=== PATIENT | female | born 2000 | race Two or more races ===

== ENCOUNTER 2020-11-11 00:40 | Emergency (ER) | payer SELFPAY ==
[~2020-11-11] VITALS: Ht 170.2 cm; Wt 91.6 kg
[2020-11-11 00:49] VITALS: BP 119/75
[2020-11-11 01:26] LABS: MICROSCOPIC AUTO
[2020-11-11 01:26] LABS: BASOPHILS % (AUTO) 1 % (0-1); EOSINOPHILS % (AUTO) 1 % (1-7); LYMPHOCYTES % (AUTO) 40 % (22-44); MEAN CORPUSCULAR HEMOGLOBIN 29.1 pg (27.0-34.8); MEAN CORPUSCULAR HGB CONC 33.8 g/dL (32.4-35.8); MEAN PLATELET VOLUME 8.7 fL (7.4-10.4); MONOCYTES % (AUTO) 7 % (2-9); NEUTROPHILS % (AUTO) 51 % (42-75); PLATELET COUNT 292 x10^3/uL (130-400); RED BLOOD COUNT 4.92 x10^6/uL (3.82-5.3); RED CELL DISTRIBUTION WIDTH 12.8 % (9.6-15.2)
--- NOTE | 2020-11-11 01:27 | NUR ---
pt presents to the ed with abd pain after intercourse for the last 3 months. pt had intercourse this morning and the pain is worse than it has been. pt in gown, [place]. pt provided ua sample and sample sent to lab. pelvic exam tray set up.
[2020-11-11] MEDS ORDERED: ACETAMINOPHEN 500 MG TABLET PO ONE (01:30)
[2020-11-11 01:35] LABS: ALBUMIN 3.9 g/dL (3.4-5.0); ANION GAP 7 mmol/L (5-15); CALCIUM 8.5 mg/dL (8.5-10.1); CHLORIDE 106 mmol/L (98-107); CREATININE 0.65 mg/dL (0.55-1.02)
--- NOTE | 2020-11-11 01:46 | NUR ---
pt to us
[2020-11-11 01:57] LABS: CLUE CELLS NONE SEEN (NONE SEEN); WET PREP WBCS FEW (FEW)
[2020-11-11] MEDS ORDERED: ACETAMINOPHEN 500 MG TABLET ONE (02:11)
--- NOTE | 2020-11-11 02:13 | NUR ---
pt back from us, resting on gudex, denies needs at this time.
--- NOTE | 2020-11-11 03:07 | NUR ---
Patient given discharge instructions and they have confirmed that they understand the instructions. Patient ambulatory with steady gait.
== END 2020-11-11 03:09 | disposition home or self-care (01) ==
LOC: ED 01:24
DX: N30.00 Acute cystitis without hematuria (principal); R10.2 Pelvic and perineal pain; N89.8 Other specified noninflammatory disorders of vagina; N88.8 Other specified noninflammatory disorders of cervix uteri
CPT/HCPCS: 36415; 76830; 80048; 81001; 82040; 84703; 85025; 87086; 87210; 87491; 87591; 87808; 99284

== ENCOUNTER 2020-11-24 22:21 | Emergency (ER) | payer SELFPAY ==
[~2020-11-24] VITALS: Ht 170.2 cm; Wt 91.7 kg
[2020-11-24 22:28] VITALS: BP 105/59
[2020-11-25] MEDS ORDERED: KETOROLAC 60 MG/2 ML IM ONE
[2020-11-25] MEDS ORDERED: METHOCARBAMOL 750 MG TABLET PO ONE
[2020-11-25] MEDS ORDERED: KETOROLAC 60 MG/2 ML ONE (00:36)
[2020-11-25] MEDS ORDERED: METHOCARBAMOL 750 MG TABLET ONE (00:36)
--- NOTE | 2020-11-25 00:54 | NUR ---
PATIENT REPORTS HER BACK HAS BEEN HURTING FOR 2 DAYS, SHE DOES NOT RECALL HURTING HER BACK. PATIENT MEDICATED PER JUN. EVANGELINA COLLECTED
[2020-11-25 01:56] LABS: HCG UR SG 1.034 (1.003-1.030); MICROSCOPIC AUTO
[2020-11-25] MEDS ORDERED: AZITHROMYCIN 500 MG TABLET ONE (02:26)
[2020-11-25] MEDS ORDERED: AZITHROMYCIN 500 MG TABLET PO ONE (02:30)
--- NOTE | 2020-11-25 02:32 | NUR ---
patient medicated per mar.
--- NOTE | 2020-11-25 02:39 | NUR ---
Patient given discharge instructions and they have confirmed that they understand the instructions. Patient ambulatory with steady gait. NAD, all questions answered appropriately, denies additional needs at this time. No personal belongings left in room after discharge.
== END 2020-11-25 02:47 | disposition home or self-care (01) ==
LOC: ED 11-25 01:44
DX: S39.012A Strain of muscle, fascia and tendon of lower back, initial encounter (principal); A56.01 Chlamydial cystitis and urethritis; X58.XXXA Exposure to other specified factors, initial encounter; Y93.89 Activity, other specified; Y92.89 Other specified places as the place of occurrence of the external cause; Y99.8 Other external cause status
CPT/HCPCS: 81001; 81025; 87086; 96372; 99283; J1885

== ENCOUNTER 2020-12-29 11:54 | Emergency (ER) | payer SELFPAY ==
[~2020-12-29] VITALS: Ht 165.1 cm; Wt 93.2 kg
[2020-12-29 13:06] LABS: BASOPHILS % (AUTO) 1 % (0-1); EOSINOPHILS % (AUTO) 1 % (1-7); LYMPHOCYTES % (AUTO) 30 % (22-44); MEAN CORPUSCULAR HEMOGLOBIN 29.1 pg (27.0-34.8); MEAN CORPUSCULAR HGB CONC 33.7 g/dL (32.4-35.8); MEAN PLATELET VOLUME 8.2 fL (7.4-10.4); MONOCYTES % (AUTO) 7 % (2-9); NEUTROPHILS % (AUTO) 61 % (42-75); PLATELET COUNT 267 x10^3/uL (130-400); RED BLOOD COUNT 5.05 x10^6/uL (3.82-5.3); RED CELL DISTRIBUTION WIDTH 13.4 % (9.6-15.2)
[2020-12-29 13:19] LABS: ALANINE AMINOTRANSFERASE 69 U/L (12-78); ANION GAP 8 mmol/L (5-15); CALCIUM 8.7 mg/dL (8.5-10.1); CHLORIDE 105 mmol/L (98-107); CREATININE 0.69 mg/dL (0.55-1.02)
[2020-12-29 13:37] LABS: ALKALINE PHOSPHATASE 80 U/L (45-117); BILIRUBIN,TOTAL 0.5 mg/dL (0.2-1.0); TOTAL PROTEIN 8.1 g/dL (6.4-8.2)
--- NOTE | 2020-12-29 15:41 | NUR ---
ASSUMED CARE OF PATIENT. PATIENT REPORTS SHE IS BUT NOT SURE HOW MANY WEEKS. PT REPORTS SOME SPOTTING AND CRAMPING. VS STABLE. CALL LIGHT IN PLACE. PT IN BATHROOM. PT GIVEN A UA CUP. CALL LIGHT IN PLACE. WILL CONTINUE TO MONITOR.
[2020-12-29 16:14] LABS: MICROSCOPIC INDICATED
--- NOTE | 2020-12-29 17:04 | NUR ---
PT RESTING IN ROOM. VS STABLE. CALL LIGHT IN PLACE. WILL CONTINUE TO MONITOR.
[2020-12-29 17:46] VITALS: BP 110/56
--- NOTE | 2020-12-29 17:57 | NUR ---
Pt dc ambulatory in NAD with instruct, pt verbalzies understanding of instruct and f/u, to return to ER if worse or concerns.
--- NOTE | 2020-12-29 18:17 | NUR ---
Waiting for discharge instructions.
== END 2020-12-29 18:55 | disposition home or self-care (01) ==
LOC: ED 11:59
DX: O20.0 Threatened abortion (principal); R94.31 Abnormal electrocardiogram [ECG] [EKG]; Z3A.01 Less than 8 weeks gestation of pregnancy
CPT/HCPCS: 36415; 76801; 80053; 81001; 84702; 85025; 86901; 87086; 99284